=== PATIENT | male | born 1960 | race Hispanic/Latino ===

== ENCOUNTER → 2024-02-04 15:51 | Outpatient (REF) | payer OTHER, SELFPAY | LOC: HWRAD 15:51 | PROVIDERS: ATTENDING PHYSICIAN Nurse Practitioner Family; FAMILY PHYSICIAN Family Medicine | DX: S46.911A Strain of unspecified muscle, fascia and tendon at shoulder and upper arm level, right arm, initial encounter (principal) | CPT/HCPCS: 73030 ==